=== PATIENT | female | born 1970 | race Caucasian/White ===

== ENCOUNTER 2017-12-03 15:09 | Emergency (ER) | END 2017-12-03 17:50 | disposition home or self-care (01) ==

== ENCOUNTER 2019-08-01 11:53 | Emergency (ER) | payer MEDICAID, OTHER ==
[~2019-08-01] VITALS: Wt 44.7 kg
[~2019-08-01 11:53] MED LIST: MEDR10TA2 PO; NAPR-985 PO; PSEU30TA38 PO
[2019-08-01 15:49] VITALS: BP 110/60; PULSE 89; RESP 18
== END 2019-08-01 15:50 | disposition home or self-care (01) ==
LOC: FTE 11:53
DX: N93.9 Abnormal uterine and vaginal bleeding, unspecified (principal); R10.2 Pelvic and perineal pain
CPT/HCPCS: 74176; 76830; 76856; 80048; 81001; 84703; 85025; 86850; 86900; 86901; Z7502